=== PATIENT | male | born 1945 | race Caucasian/White ===

== ENCOUNTER → 2017-05-29 | Day surgery (SDC) | payer MEDICARE ==
[~2017-05-29] VITALS: Ht 154.9 cm; Wt 57.2 kg
[~2017-05-29] MED LIST: ADVAIR DISKUS 11 DSK INH; ALBUTEROL SUL0.25 ML INH; ALBUTEROL2.5 MG/0.5 INH; ASPIRIN ADULT L81 M1 PO; BIAXIN500 MG PO; CALCIUM1 CAP PO; CIPRO500 MG PO; COMBIVENT1 ARO IH; DALI500T PO; DELTASONE10 MG PO; DELTASONE5 MG PO; DUONEB 3 MG/3 ML3 M1 INH; DUONEB 3 MG/3 ML3 M1 NEB; HYDROCODONE-AC1 EAC1 PO; NATURE'S BLEND500 M6 PO; PERCOCET 325 MG1 TA2 PO; PREDNICOT10 MG PO; PREDNICOT20 MG PO; PROAIR HFA0.09 MG/AC INH; SPIRIVA18 MCG INH; SYMBICORT1 AER INH; VENTOLIN H0.09 MG/AC INH; VENTOLIN0.09 MG/AC INH; VIBRAMYCIN100 MG PO; VITAMIN D400 I1 PO; ZITHROMAX Z PA250 MG PO
--- NOTE | ~2017-05-29 | O ---
[place], [place] OPERATIVE NOTE NAME: CHERELLE MEYER [facility] CLINICT #: [id number] UNIT #: [id number] ROOM: DOCTOR: LESLEY PRADO MD BIRTHDATE: [birth year] DOS: 05/29/2017 PREOPERATIVE DIAGNOSIS: Combined forms of age-related cataract, left eye POSTOPERATIVE DIAGNOSIS: Combined forms of age-related cataract, left eye OPERATION: Extracapsular cataract extraction by phacoemulsification with posterior chamber intraocular lens implantation, left eye. ANESTHESIA: Monitored standby. OPERATIVE FINDINGS AND PROCEDURE: 2% Xylocaine topical anesthetic gel was applied to the eye in the preop area. The patient was taken to the operating room and prepped and draped in the standard fashion for sterile intraocular surgery. A time out procedure was performed verifying correct patient, correct site and corrects lens with Kaleb Prado M.D. The operating microscope was swung into position and the lid speculum was inserted. Using a Carolyn paracentesis blade, a paracentesis was made through clear cornea. Viscoelastic was used to fill the anterior chamber. Using a metal keratome a 2.4 mm self-sealing clear corneal cataract incision was made temporally at the limbus. Using a pre-bent 25 gauge cystotome needle, a standard continuous curvilinear capsulorrhexis was performed. The anterior capsule was removed with forceps. The lens nucleus was hydrodissected and phacoemulsified in the posterior chamber. Cortical material was removed with the irrigation aspiration hand piece and the posterior capsule was then polished with a curet under irrigation. The posterior chamber and capsular bag were filled with viscoelastic. A posterior chamber intraocular lens manufactured by: [employer], Model #[id number], and 19.5 diopters in strength were then inserted into the posterior chamber and within the capsular bag using the lens cartridge and injector system. Viscoelastic was removed using the irrigation aspiration handpiece. The anterior chamber was filled with balanced salt solution through the paracentesis. Both the paracentesis site and cataract incisions were hydrated with BSS and verified to be water-tight and self-sealing. Cefuroxime 1 mg/0.1 mL was injected into the anterior chamber through the paracentesis site. The incision checked to be water-tight using a Weck-Najma sponge. The integrity of the cataract wound and ocular tension were checked. Lid speculum and drapes were removed. The patient was transferred from the operating room to the recovery room in satisfactory condition. [place], [place] OPERATIVE NOTE NAME: MITCHCHERELLE Cronin UNIT #: [id number] ROOM: DOCTOR: LESLEY PRADO MD BIRTHDATE: [birth year] LESLEY PRADO MD CM:OPRECORD:OPERATIVE NOTE [id number] LESLEY PRADO MD 06/04/17 1020 interface
[2017-05-29 09:00] VITALS: BP 134/65
[2017-05-29 09:26] VITALS: BP 166/67
[2017-05-29 11:12] VITALS: BP 146/75
[2017-05-29 11:27] VITALS: BP 137/77
[2017-05-29 11:38] VITALS: BP 139/76
== END | disposition home or self-care (01) ==
LOC: SDC 05-24 08:45
DX: H25.812 Combined forms of age-related cataract, left eye (principal); J43.9 Emphysema, unspecified; Z80.9 Family history of malignant neoplasm, unspecified; Z87.891 Personal history of nicotine dependence; Z98.890 Other specified postprocedural states; Z79.899 Other long term (current) drug therapy

== ENCOUNTER → 2017-06-14 | Outpatient (CLI) | payer MEDICARE ==
[2017-06-14] VITALS (9 sets, daily range): BP systolic 113–144; BP diastolic 61–95
[2017-06-14 09:56] LABS: HEMATOCRIT 26.2 % (42.0-52.0); HEMOGLOBIN 6.9 g/dl (14.0-18.0)
== END | disposition home or self-care (01) ==
LOC: TRNFUSION 09:30
PROVIDERS: Internal Medicine
DX: D56.5 Hemoglobin E-beta thalassemia (principal); D64.9 Anemia, unspecified

== ENCOUNTER → 2017-06-19 | Day surgery (SDC) | payer MEDICARE ==
[2017-06-14 11:01] VITALS: BP 113/61
[~2017-06-19] VITALS: Ht 154.9 cm; Wt 57.2 kg
--- NOTE | ~2017-06-19 | O ---
[place], [place] OPERATIVE NOTE NAME: [facility]ER [facility] [id number] UNIT #: [id number] ROOM: DOCTOR: LESLEY PRADO MD BIRTHDATE: [birth year] DOS: 06/19/2017 PREOPERATIVE DIAGNOSIS: Cataract, right eye. POSTOPERATIVE DIAGNOSIS: Cataract, right eye. OPERATION: Extracapsular cataract extraction by phacoemulsification with posterior chamber intraocular lens implantation, right eye. ANESTHESIA: Monitored standby. OPERATIVE FINDINGS AND PROCEDURE: 2% Xylocaine topical anesthetic gel was applied to the eye in the preop area. The patient was taken to the operating room and prepped and draped in the standard fashion for sterile intraocular surgery. A time out procedure was performed verifying correct patient, correct site and corrects lens with Kaleb Prado M.D. The operating microscope was swung into position and the lid speculum was inserted. Using a Carolyn paracentesis blade, a paracentesis was made through clear cornea. Viscoelastic was used to fill the anterior chamber. Using a metal keratome a 2.4 mm self-sealing clear corneal cataract incision was made temporally at the limbus. Using a pre-bent 25 gauge cystotome needle, a standard continuous curvilinear capsulorrhexis was performed. The anterior capsule was removed with forceps. The lens nucleus was hydrodissected and phacoemulsified in the posterior chamber. Cortical material was removed with the irrigation aspiration hand piece and the posterior capsule was then polished with a curet under irrigation. The posterior chamber and capsular bag were filled with viscoelastic. A posterior chamber intraocular lens manufactured by: [employer], Model #[id number], and 19.5 diopters in strength were then inserted into the posterior chamber and within the capsular bag using the lens cartridge and injector system. Viscoelastic was removed using the irrigation aspiration handpiece. The anterior chamber was filled with balanced salt solution through the paracentesis. Both the paracentesis site and cataract incisions were hydrated with BSS and verified to be water-tight and self-sealing. Cefuroxime 1 mg/0.1 mL was injected into the anterior chamber through the paracentesis site. The incision checked to be water-tight using a Weck-Najma sponge. The integrity of the cataract wound and ocular tension were checked. Lid speculum and drapes were removed. The patient was transferred from the operating room to the recovery room in satisfactory condition. [place], [place] OPERATIVE NOTE NAME: CHERELLE MEYER UNIT #: [id number] ROOM: DOCTOR: LESLEY PRADO MD BIRTHDATE: [birth year] LESLEY PRADO MD CM:OPRECORD:OPERATIVE NOTE [id number] LESLEY PRADO MD 06/19/17 1357 interface
[2017-06-19 13:00] VITALS: BP 117/59
[2017-06-19 13:41] VITALS: BP 152/84
[2017-06-19 13:56] VITALS: BP 167/80
[2017-06-19 14:10] VITALS: BP 162/73
== END | disposition home or self-care (01) ==
LOC: SDC 06-17 12:30
DX: H25.811 Combined forms of age-related cataract, right eye (principal); J43.9 Emphysema, unspecified; Z80.9 Family history of malignant neoplasm, unspecified; Z87.891 Personal history of nicotine dependence; Z79.899 Other long term (current) drug therapy